=== PATIENT | male | born 1970 | race African-American/Black ===

== ENCOUNTER 2016-09-08 14:37 | Emergency (ER) | payer SELFPAY ==
[~2016-09-08] VITALS: Ht 180.3 cm; Wt 102.1 kg
[~2016-09-08 14:37] MED LIST: ANTIVERT25 MG PO; CARDIZEM30 MG PO; COLCRYS0.6 MG PO; DESYREL50 MG PO; GLUCOPHAGE500 MG PO; GLUCOTROL5 MG PO; METFORMIN500 MG PO; VASOTEC5 MG PO; VIBRAMYCIN100 MG PO
[2016-09-08 15:17] VITALS: BP 134/87
--- NOTE | 2016-09-08 18:20 | NUR ---
NO ANSWER OUT IN ER LOBBY
--- NOTE | 2016-09-08 18:40 | NUR ---
NO ANSWER OUT IN ER LOBBY OR OUT SIDE ER LOBBY DOORS
== END 2016-09-08 18:40 | disposition left against medical advice (07) ==
LOC: MED 14:37
DX: R73.9 Hyperglycemia, unspecified (principal); Z53.21 Procedure and treatment not carried out due to patient leaving prior to being seen by health care provider